=== PATIENT | female | born 1955 | race Caucasian/White ===

== ENCOUNTER → 2016-12-28 | Outpatient (CLI) | payer MEDICARE, OTHER | LOC: EMI 12-27 13:45 → KOH-I 13:42 → EMI 13:45 | DX: M47.812 Spondylosis without myelopathy or radiculopathy, cervical region (principal); M50.221 Other cervical disc displacement at C4-C5 level | CPT/HCPCS: 72141 ==

== ENCOUNTER 2021-06-01 13:23 | Inpatient (IN) | payer MEDICARE ==
[~2021-06-01] VITALS: Ht 165.1 cm; Wt 81.6 kg
[~2021-06-01 13:23] MED LIST: ACETAMINOPHEN PO; ALDACTONE50 MG PO; ALPRAZOLAM0.5 MG PO; ANTIVERT 25MG T25 MG PO; ASPIRIN EC81 MG PO; ATENOLOL25 MG PO; ATORVASTATIN CA10 MG PO; CLARITIN 10MG T10 MG PO; CYANOCOBAL1000 MCG/1 INJ; CYANOCOBAL1000 MCG/1 SC; DOLOPHINE HCL10 MG PO; FEOSOL325 MG PO; FLUOXETINE HCL40 MG PO; IMDUR ER TAB 6060 MG PO; LEVOFLOXACIN250 MG PO; LIPITOR TAB 1010 MG PO; LOVENOX40 MG/0.4 SQ; LYRICA100 MG PO; MECLIZINE HCL25 MG PO; MELOXICAM7.5 MG PO; METHADONE HCL10 MG PO; MOBIC7.5 MG PO; NEXIUM40 MG PO; OMNICEF 300 MG300 MG PO; ONDANSETRON HCL4 MG PO; OXYCODONE HCL10 MG PO; OXYCODONE HCL5 M1 PO; PREDNISONE20 MG PO; PREGABALIN150 MG PO; PRIMIDONE50 MG PO; PROZAC40 MG PO; RANITIDINE HCL300 MG PO; REQUIP0.5 MG PO; ROPINIROLE HCL0.5 MG PO; SENNA8.6 MG PO; SILVADENE CREAM20 GM TOP; SINEQUAN CAP 1010 MG PO; SPIRIVA RESPIMAT4 GM INH; TENORMIN 25 MG25 MG PO; ZOFRAN4 MG PO
[2021-06-01 15:20] LABS: RED BLOOD COUNT 3.34 M/UL (4.00-5.10); WHITE BLOOD COUNT 19.3 K/UL (4.5-11.0)
[2021-06-01] MEDS ORDERED: CYCLOBENZAPRINE10 MG PO (20:10)
[2021-06-01] MEDS ORDERED: GABAPENTIN300 MG PO (20:12)
[2021-06-02 06:47] LABS: HEMOGLOBIN 8.2 gm/dl (12.3-15.3); WHITE BLOOD COUNT 16.3 K/UL (4.5-11.0)
[2021-06-02 06:52] LABS: RED BLOOD COUNT 2.84 M/UL (4.00-5.10)
--- NOTE | 2021-06-02 15:43 | NUR ---
PT VOICED CONCERN THIS MORNING ON ASSESSMENT REGARDING HER SURGERY. CAT, SPOKE WITH THE PT AND INFORMED THE PT ABOUT THE UPCOMING SURGERY FOR HER RIGHT HIP. PT'S SISTER CALLED WITH CONCERNS ABOUT HER SISTER'S SURGERY. PT'S SISTER DEMANDED THAT THE SURGEON CALL HER, IVAN RUIZ [phone], AND SPEAK WITH HER ABOUT HER SISTER'S SURGERY. I CALLED CASE MANAGEMENT SINCE THE PT WAS ALERT AND ORIENTED AND HAS NO POA OR MEDICAL SURROGATE ON FILE. CASE MANAGEMENT EXPLAINED THAT IF THE PT GIVES PERMISSION FOR THE INFORMATION TO BE RELEASED TO HER SISTER, THEN THE PHYSICIAN CAN SPEAK WITH HER. PT GAVE PERMISSION TO HAVE THE PHYSICIAN CALL HER SISTER AND EXPLAIN THE SURGERY. DR. SANDY ARRIVED ON THE FLOOR TO ADDRESS THE PT'S CONCERNS ABOUT THE SURGERY. AFTER LEAVING THE ROOM, HE CALLED THE SISTER WITH THE PT'S PERMISSION AND SPOKE WITH HER ABOUT THE PENDING SURGERY. PT WAS TAKEN DOWN FOR SURGERY AND CONSENT WAS SIGNED.
[2021-06-02 19:11] LABS: HEMOGLOBIN 10.1 gm/dl (12.3-15.3); WHITE BLOOD COUNT 16.5 K/UL (4.5-11.0)
[2021-06-02 19:12] LABS: RED BLOOD COUNT 3.33 M/UL (4.00-5.10)
[2021-06-03 04:22] LABS: RED BLOOD COUNT 3.33 M/UL (4.00-5.10)
[2021-06-03 04:25] LABS: WHITE BLOOD COUNT 12.2 K/UL (4.5-11.0)
[2021-06-04 06:44] LABS: HEMOGLOBIN 9.5 gm/dl (12.3-15.3); RED BLOOD COUNT 3.17 M/UL (4.00-5.10); WHITE BLOOD COUNT 13.6 K/UL (4.5-11.0)
[2021-06-05 06:56] LABS: HEMOGLOBIN 9.2 gm/dl (12.3-15.3); RED BLOOD COUNT 3.09 M/UL (4.00-5.10); WHITE BLOOD COUNT 12.4 K/UL (4.5-11.0)
[2021-06-06 05:28] LABS: RED BLOOD COUNT 3.04 M/UL (4.00-5.10); WHITE BLOOD COUNT 13.4 K/UL (4.5-11.0)
[2021-06-07 07:39] LABS: HEMOGLOBIN 8.7 gm/dl (12.3-15.3); RED BLOOD COUNT 3.1 M/UL (4.00-5.10); WHITE BLOOD COUNT 12.3 K/UL (4.5-11.0)
[2021-06-08 06:28] LABS: HEMOGLOBIN 8.9 gm/dl (12.3-15.3); RED BLOOD COUNT 2.99 M/UL (4.00-5.10); WHITE BLOOD COUNT 12.9 K/UL (4.5-11.0)
[2021-06-08] MEDS ORDERED: ENOXAPARIN40 MG/0.4 SC (08:40)
== END 2021-06-08 20:05 | DRG 469 ==
LOC: ER1 13:23 → M/S 17:34 → CCU 17:34 → CDU 17:34 → M/S 20:01 → CCU 06-02 21:02 → M/S 06-03 16:39
PROVIDERS: Nurse Practitioner; Orthopaedic Surgery; Physician Assistant; Physician Assistant Medical; ADMIT Internal Medicine
PROC: 0SRR0J9 Replacement of Right Hip Joint, Femoral Surface with Synthetic Substitute, Cemented, Open Approach (ICD-10-PCS; principal; 2021-06-02 13:00)
PROC: 0QP604Z Removal of Internal Fixation Device from Right Upper Femur, Open Approach (ICD-10-PCS; 2021-06-02 13:00)
PROC: 30233N1 Transfusion of Nonautologous Red Blood Cells into Peripheral Vein, Percutaneous Approach (ICD-10-PCS; 2021-06-02 13:00)
DX: S72.491K Other fracture of lower end of right femur, subsequent encounter for closed fracture with nonunion (principal); S72.011A Unspecified intracapsular fracture of right femur, initial encounter for closed fracture; D62 Acute posthemorrhagic anemia; Z20.822 Contact with and (suspected) exposure to COVID-19; J44.9 Chronic obstructive pulmonary disease, unspecified; I12.9 Hypertensive chronic kidney disease with stage 1 through stage 4 chronic kidney disease, or unspecified chronic kidney disease; N18.30 Chronic kidney disease, stage 3 unspecified; N28.89 Other specified disorders of kidney and ureter; F17.210 Nicotine dependence, cigarettes, uncomplicated; D63.1 Anemia in chronic kidney disease; F41.9 Anxiety disorder, unspecified; G89.29 Other chronic pain; W01.0XXA Fall on same level from slipping, tripping and stumbling without subsequent striking against object, initial encounter; G25.81 Restless legs syndrome; E03.9 Hypothyroidism, unspecified; E78.5 Hyperlipidemia, unspecified; Y93.01 Activity, walking, marching and hiking; Z87.81 Personal history of (healed) traumatic fracture; Z90.49 Acquired absence of other specified parts of digestive tract; Z98.51 Tubal ligation status; Z88.2 Allergy status to sulfonamides; Z88.8 Allergy status to other drugs, medicaments and biological substances; Z83.3 Family history of diabetes mellitus; Z80.9 Family history of malignant neoplasm, unspecified
CPT/HCPCS: 0012A; 36415; 36430; 51702; 71045; 72100; 72131; 73502; 73552; 73564; 73590; 73700; 76000; 80048; 80053; 81001; 83735; 85025; 85027; 85610; 85730; 86850; 86870; 86900; 86901; 86902; 86905; 86920; 86922; 87070; 91301; 93005; 97110-GP-CQ; 97116-GP-CQ; 97161; 97530; 97530-GP-CQ; 99285; C1713; C1776; J0171; J0690; J1100; J1644; J1650; J2001; J2250; J2270; J2370; J2405; J2704; J2795; J3010; J3370; J7030; J7040; J7050; J7120; P9016; P9045; U0002